=== PATIENT | male | born 1985 | race Caucasian/White ===

== ENCOUNTER 2017-06-21 09:44 | Day surgery (SDC) | payer OTHER ==
[2017-06-06 11:31] LABS: ANION GAP 10 (5-19); BLOOD UREA NITROGEN 14 mg/dL (7-20); CALCIUM 10.3 mg/dL (8.4-10.2); CARBON DIOXIDE 26 mmol/L (22-30); CHLORIDE 103 mmol/L (98-107); CREATININE RESULT 0.87 mg/dL (0.52-1.25); GLUCOSE 86 mg/dL (75-110); POTASSIUM 4.7 mmol/L (3.6-5.0)
[~2017-06-21 09:44] MED LIST: CEFAZOLIN 2 GM/D5W RTU 2 GM/50 ML RTUPB IV PRN; LACTATED RINGERS 1000 ML IV PRN; LIDOCAINE 0.5% INJ-PF (5 MG/ML) 50 ML SDV SUBCUT PRN
[2017-06-21] MEDS ORDERED: BUPIVACAINE HCL 0.5 % INJ/PF 30 ML SDV ONE (10:31)
[2017-06-21] MEDS ORDERED: LIDOCAINE 1%/EPINEPHRINE INJ 20 ML VIAL ONE (10:32)
[2017-06-21 10:43] LABS: APPEARANCE,URINE CLEAR; BILIRUBIN,URINE NEGATIVE (NEGATIVE); GLUCOSE, URINE NEGATIVE (NEGATIVE); KETONES,URINE NEGATIVE (NEGATIVE); LEUKOCYTE ESTERASE,URINE NEGATIVE (NEGATIVE); NITRITE,URINE NEGATIVE (NEGATIVE); PROTEIN,URINE NEGATIVE (NEGATIVE); UROBILINOGEN,URINE NEGATIVE mg/dL (<2.0)
[2017-06-21 10:50] LABS: ABSOLUTE MONOCYTES (AUTO) 0.3 10^3/uL (0.1-1.4); ABSOLUTE NEUT (AUTO) 2.4 10^3/uL (1.7-8.2); BASOPHILS % (AUTO) 0.2 % (0-2); EOSINOPHILS % (AUTO) 0.1 % (0-6); HEMOGLOBIN 14.5 g/dL (13.5-17.0); HGB HCT DIFFERENCE 0.5; LYMPHOCYTES % (AUTO) 41.4 % (13-45); MEAN CORPUSCULAR HEMOGLOBIN 26.9 pg (27.0-33.4); MEAN CORPUSCULAR HGB CONC 33.8 g/dL (32.0-36.0); MEAN CORPUSCULAR VOLUME 79 fl (80-97); RED BLOOD COUNT 5.41 10^6/uL (4.35-5.55); RED CELL DISTRIBUTION WIDTH 15.1 % (11.5-14.0); SEGMENTED NEUTROPHILS % (AUTO) 51.3 % (42-78); WHITE BLOOD COUNT 4.8 10^3/uL (4.0-10.5)
[2017-06-21] MEDS ORDERED: MIDAZOLAM 2 MG/2 ML INJ ONE (11:35)
[2017-06-21] MEDS ORDERED: FENTANYL CITRATE INJ/PF 100 MCG/2 ML AMPUL ONE (11:35)
[2017-06-21] MEDS ORDERED: PROPOFOL INJ 200 MG/20 ML VIAL IV ONE (11:36)
[2017-06-21] MEDS ORDERED: ACETAMINOPHEN 100 ML IV ONE (11:36)
[2017-06-21] MEDS ORDERED: PROMETHAZINE HCL INJ 25 MG/1 ML VIAL IV PRN ×2 (11:56)
[2017-06-21] MEDS ORDERED: MORPHINE SULFATE 10 MG/ML INJ IV PRN (11:56)
[2017-06-21] MEDS ORDERED: MEPERIDINE HCL/PF INJ 25 MG/1 ML DISP.SYRIN IV PRN (11:56)
[2017-06-21] MEDS ORDERED: OXYCODONE-ACETAMINOPHEN 5-325 MG TABLET PO PRN ×2 (11:56)
[2017-06-21] MEDS ORDERED: FENTANYL CITRATE INJ/PF 100 MCG/2 ML AMPUL IV PRN ×3 (11:56)
[2017-06-21] MEDS ORDERED: DIPHENHYDRAMINE HCL 50 MG/ML VIAL IV PRN (11:56)
--- NOTE | 2017-06-21 12:18 | Operative Report ---
Operative Report DATE OF SURGERY: 06/21/17 PREOPERATIVE DIAGNOSIS: Left medial meniscal tear POSTOPERATIVE DIAGNOSIS: Left posterior horn medial meniscal tear. Grade I chondromalacia the medial compartment. Intact ACL. 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 Lateral meniscal tear. 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 The knee is insufflated with accommodation Marcaine , Xylocaine, and epinephrine through medial lateral patella portals. Infrapatellar portals were then created and used for the instruction arthroscope and debridement mentation. Joint is examined in systematic fashion findings as above. Examining the joint reveals a tear of the posterior insertion of the medial meniscus. The posterior aspect of this is then debrided using using combination basket Roberto, mechanical shaver, elective frequency ablation probe the posterior root of the medial meniscus is removed obliquely. Using a radiofrequency ablation probe a partial lateral meniscectomy was performed from approximately 5:00 to 12:00 on the face with Dial. This point the joint is again examined in systematic fashion findings. Instrumentation was removed. The portals reapproximated with interrupted nylon. A sterile compressive dressing was applied and the patient's return to the PACU in satisfactory condition.
[2017-06-21] MEDS ORDERED: OXYCODONE HCL IR 5 MG TABLET PO PRN (12:31)
[2017-06-21] MEDS ORDERED: ONDANSETRON 4 MG TAB.RAPDIS PO PRN (12:32)
[2017-06-21 16:28] VITALS: BP 132/80
== END 2017-06-21 14:20 | disposition home or self-care (01) ==
LOC: OROUT 09:44
PROVIDERS: ATTEND Orthopaedic Surgery
PROC: 0SBD4ZZ Excision of Left Knee Joint, Percutaneous Endoscopic Approach (ICD-10-PCS; 2017-06-21)
PROC: 0SBD4ZZ Excision of Left Knee Joint, Percutaneous Endoscopic Approach (ICD-10-PCS; principal; 2017-06-21 12:15)
DX: M23.304 Other meniscus derangements, unspecified medial meniscus, left knee (principal); M23.301 Other meniscus derangements, unspecified lateral meniscus, left knee; M94.262 Chondromalacia, left knee; R01.1 Cardiac murmur, unspecified; E03.9 Hypothyroidism, unspecified
CPT/HCPCS: 36415 ×2; 85025; 80048; 81001; 29880; J2250; J3010; J3490; J2704; J0690; J0131; 1400